=== PATIENT | male | born 1995 | race Caucasian/White ===

== ENCOUNTER 2020-03-21 15:30 | Emergency (ER) | payer MEDICAID ==
[~2020-03-21] VITALS: Ht 188 cm; Wt 77.0 kg
== END 2020-03-21 16:23 | disposition home or self-care (01) ==
LOC: ER 15:32
DX: S60.222A Contusion of left hand, initial encounter (principal); M79.641 Pain in right hand; F17.200 Nicotine dependence, unspecified, uncomplicated; F12.90 Cannabis use, unspecified, uncomplicated; X58.XXXA Exposure to other specified factors, initial encounter; Y93.89 Activity, other specified; Y92.89 Other specified places as the place of occurrence of the external cause; Y99.8 Other external cause status
CPT/HCPCS: 73130; 99283